=== PATIENT | male | born 1955 | race Caucasian/White ===

== ENCOUNTER → 2017-05-30 | Outpatient (CLI) | payer OTHER ==
[~2017-05-30] MED LIST: ALPRAZOLAM PO; AMLODIPINE-BEN1 EAC3 PO; NORCO 7.5-3251 EACH PO; PRISTIQ; PROAIR
--- NOTE | ~2017-05-30 | CR184 ---
[facility] A Service of [facility] RADIOLOGY TEXT RESULTS PATIENT: MADHURI UNDERWOOD LOCATION: [facility] : 59 UNIT #: [id number] AGE: [address]: Matti Sawant MD SEX: M ORDER DR: [id number] [facility] [address] [place], [place] [address] [id number] O MR#: [id number] Acc #: [id number] NAME: MADHURI UNDERWOOD : 1955 SEX: M STUDY DATE/TIME: 05/30/2017 8:52 UNIT: [facility] ROOM: STUDY DESCRIPTION: CR Lumbar Spine Min 4 Views Attending Physician: Matti Sawant M.D. Referring Physician: Matti Sawant M.D. Ordering Physician: Matti Sawant M.D. Primary Care Physician: Javier Bustillos M.D. MEDICAL IMAGING REPORT This report is preliminary unless electronic signature is present EXAM Lumbar spine 05/30 INDICATIONS Low back pain for 3 months. No trauma. TECHNIQUE 5 views of the lumbar spine were obtained, including flexion/extension views. COMPARISON STUDIES No comparison. FINDINGS No acute compression fractures are seen. There is extensive degenerative endplate spurring throughout the lumbar spine. There is bilateral facet arthropathy, at least at L5-L1. There is grade 1 anterolisthesis of L5 on S1. This appears stable between flexion and extension. There is also grade 1 retrolisthesis of L1 on L2. This is also stable between flexion and extension. IMPRESSION Extensive degenerative disease. Spondylolisthesis at L1-L2 and L5-S1 appears stable between flexion and extension. No compression fractures. Dictated by... Bonifacio Bojorquez Jr., M.D. THIS IS AN ELECTRONICALLY VERIFIED REPORT Bonifacio Bojorquez Jr., M.D. at 05/31/2017 8:49 AM RLK/pcl [facility] A Service of [facility] / [facility] RADIOLOGY TEXT RESULTS PATIENT: MADHURI UNDERWOOD LOCATION: [facility] : 59 UNIT #: [id number] AGE: [address]: Matti Sawant MD SEX: M ORDER DR: TD: 05/30/2017 22:09 JOB #: [id number] MEDICAL IMAGING REPORT Page 1 of 1 COPY
--- NOTE | ~2017-05-30 | CT52 ---
[facility] A Service of [facility] RADIOLOGY TEXT RESULTS PATIENT: MADHURI UNDERWOOD [facility] : 59 UNIT #: [id number] AGE: [address]: Matti Sawant MD SEX: M ORDER DR: [id number] [facility] [address] [place] [address] [place], [place] [address] [id number] O MR#: [id number] Acc #: [id number] NAME: MADHURI UNDERWOOD : 1955 SEX: M STUDY DATE/TIME: 05/30/2017 9:22 UNIT: [facility] ROOM: STUDY DESCRIPTION: CT Cervical Spine Wo Cont Attending Physician: Matti Sawant M.D. Referring Physician: Matti Sawant M.D. Ordering Physician: Matti Sawant M.D. Primary Care Physician: Javier Bustillos M.D. MEDICAL IMAGING REPORT This report is preliminary unless electronic signature is present EXAM Cervical spine CT HISTORY Neck pain with left hand tingling and numbness. Patient became symptomatic in February 2017. TECHNIQUE Thin section imaging was obtained from the skull base to the upper thoracic spine and evaluated at bone and soft tissue windows with multiplanar reformats. This CT exam was performed with one or more of the following radiation dose reduction techniques: automatic exposure control, adjustment of mA and/or kV according to patient size, and iterative reconstruction. FINDINGS Alignment is satisfactory. Large anterior osteophytes are seen throughout the cervical spine. Smaller posterior osteophytes are noted at C2-3, C3-4, and C5-6. Fusion is seen across C4-5 with advanced degenerative disc disease with disc space narrowing and osteophyte formation at C5-6 and C6-7. Foraminal stenosis is present to a mild degree at the upper cervical levels. There is moderate bilateral foraminal narrowing at C5-6, right worse than left at C6-7 symmetric from one side to the other. There is no evidence of severe left foraminal stenosis at any level. Cpit-rt-hqmbrluy facet arthropathy is seen in the mid cervical levels bilaterally, fairly symmetric from one side to the other. No fractures or destructive bone lesions are seen. The AP diameter of the cervical spinal canal is somewhat narrow at the mid cervical levels most prominently at C3-4 where the AP diameter is just under 1 cm. No paraspinous soft tissue masses are seen. No fractures or destructive bone lesions are noted. [facility] A Service of [facility] RADIOLOGY TEXT RESULTS PATIENT: MADHURI UNDERWOOD LOCATION: [facility] : 59 UNIT #: [id number] AGE: [address]: Matti Sawant MD SEX: M ORDER DR: IMPRESSION Advanced multilevel cervical degenerative disc disease with moderate cervical facet arthropathy as described above. No evidence of severe left foraminal narrowing at any level. Left foraminal narrowing is most prominent at C5-6 and C6-7. No acute bony abnormalities are seen. Moderately severe central stenosis is present at C3-4 with an AP diameter of the spinal canal of just under 1 cm. 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 This can occasionally be symptomatic and result in lower elwha syndrome. Dictated by... Bonifacio Lima M.D. THIS IS AN ELECTRONICALLY VERIFIED REPORT Bonifacio Lima M.D. at 05/31/2017 7:08 AM KATIA/arlyn TD: 05/31/2017 00:31 JOB #: [id number] MEDICAL IMAGING REPORT Page 1 of 1 COPY
== END | disposition home or self-care (01) ==
LOC: CCAT 08:37
DX: M50.121 Cervical disc disorder at C4-C5 level with radiculopathy (principal); M51.16 Intervertebral disc disorders with radiculopathy, lumbar region; M43.16 Spondylolisthesis, lumbar region; M43.17 Spondylolisthesis, lumbosacral region; M46.92 Unspecified inflammatory spondylopathy, cervical region; M48.02 Spinal stenosis, cervical region; M67.88 Other specified disorders of synovium and tendon, other site
CPT/HCPCS: 72110; 72125